=== PATIENT | female | born 1945 | race Caucasian/White ===

== ENCOUNTER 2016-12-10 14:50 | Observation (INO) | payer OTHER ==
[~2016-12-10] VITALS: Ht 162.6 cm; Wt 53.4 kg
[2016-12-10 16:04] LABS: HEMATOCRIT 37.9 % (36.0-46.0); MCH 33.3 PG (29.0-34.0); MCHC 33.2 G/DL (30.0-36.0); MCV 100.3 FL (83-99); MEAN PLAT.VOLUME 10.1 uM^3 (9.5-12.4); PLATELET COUNT 248 K/uL (156-360); RBC DIS.WIDTH-CV 13.1 % (11.8-14.6); RBC DIS.WIDTH-SD 48.5 % (39-53); RED BLOOD COUNT 3.78 M/uL (3.80-5.20); WHITE BLOOD COUNT 8.2 K/uL (4.1-10.2)
[2016-12-10 16:11] LABS: CHLORIDE 106 mEq/L (99-109); POTASSIUM 4.3 mEq/L (3.7-5.4); SODIUM 140 mEq/L (136-147)
[2016-12-10 16:13] LABS: GLUCOSE 110 mg/dL (70-99)
[2016-12-10 16:14] LABS: ANION GAP 13 MEQ/L (2-14)
[2016-12-10 16:17] LABS: GFR ESTIMATE (CALCULATED) 52 mL/min/
[2016-12-10 16:18] LABS: UREA NITROGEN (BUN) 20 mg/dL (9-23)
[2016-12-10 17:02] LABS: TROP-I INTERPRETATION NEGATIVE; TROPONIN-I < 0.01 ng/mL (0.0-0.30)
[2016-12-10 19:28] LABS: ADD MIUA? NO; BILIRUBIN NEGATIVE; BLOOD NEGATIVE; COLOR STRAW ((YELLOW)); GLUCOSE (STRIP) NEGATIVE; KETONES NEGATIVE; LEUKOCYTES NEGATIVE; NITRITE NEGATIVE; PROTEIN (STRIP) NEGATIVE; SPECIFIC GRAVITY 1.009 (1.000-1.030); UCUL ADDED? NO; UROBILINOGEN 0.2 MG/DL (0.2-1.0)
[2016-12-10] MEDS ORDERED: KEPPRA1000 MG PO (21:13)
[2016-12-10] MEDS ORDERED: SOTALOL120 MG PO (21:14)
[2016-12-10] MEDS ORDERED: VIMPAT150 MG PO (21:14)
[2016-12-10] MEDS ORDERED: EVISTA60 MG PO (21:15)
[2016-12-10] MEDS ORDERED: CRESTOR20 MG PO (21:17)
[2016-12-10] MEDS ORDERED: PAXIL10 MG PO (21:17)
[2016-12-10] MEDS ORDERED: MYSOLINE50 MG PO (21:18)
[2016-12-10] MEDS ORDERED: QVAR 80 MCG IN7.3 GM IH (21:19)
[2016-12-10] MEDS ORDERED: SPIRIVA18 MCG IH (21:19)
[2016-12-10] MEDS ORDERED: XALATAN2.5 ML BOTH EYES (21:21)
[2016-12-10] MEDS ORDERED: VENTOLIN HFA18 GM IH (21:22)
[2016-12-10] MEDS ORDERED: ANTI-DIARRHEA2 MG PO (21:23)
[2016-12-10] MEDS ORDERED: SALINE SOLUTIO360 ML (21:24)
[2016-12-10 21:52] LABS: MAGNESIUM 2.3 mg/dL (1.3-2.7)
[2016-12-10 21:57] LABS: SERUM ETHYL ALCOHOL < 10 mg/dL
[2016-12-10 22:33] VITALS: BP 136/90
[2016-12-11 04:43] VITALS: BP 116/65
[2016-12-11 05:12] LABS: AMPHETAMINES QUANT VALUE 0 NG/ML; BENZODIAZEPINES QUANT VALUE 0 NG/ML; BENZODIAZEPINES, URINE SCREEN Negative (200 ng/mL); MARIJUANA QUANT VALUE 0 NG/ML; OPIATES QUANTITATIVE VALUE 0 NG/ML; PHENCYCLIDINE QUANT VALUE 0 NG/ML
[2016-12-11 11:57] VITALS: BP 84/54
[2016-12-11 15:47] VITALS: BP 91/56
[2016-12-11 20:00] VITALS: BP 92/50
[2016-12-12 00:13] VITALS: BP 92/53
[2016-12-12 04:01] VITALS: BP 100/52
[2016-12-12 07:32] VITALS: BP 113/58
[2016-12-12 11:38] VITALS: BP 88/60
[2016-12-12] MEDS ORDERED: ASPIRIN81 M2 PO (12:47)
[2016-12-12] MEDS ORDERED: FOLIC ACID1 MG PO (12:48)
[2016-12-12] MEDS ORDERED: THIAMINE HCL100 MG PO (12:48)
== END 2016-12-12 15:45 | disposition home or self-care (01) ==
LOC: EME 14:50 → EDOF 21:03 → 5WEST 21:03 → ENRESERV 21:05 → 5WEST 22:20
PROVIDERS: Emergency Medicine; Physician Assistant Medical
DX: G40.409 Other generalized epilepsy and epileptic syndromes, not intractable, without status epilepticus (principal); R41.82 Altered mental status, unspecified; I48.2 Chronic atrial fibrillation; F10.20 Alcohol dependence, uncomplicated; I10 Essential (primary) hypertension; J44.9 Chronic obstructive pulmonary disease, unspecified; G25.0 Essential tremor; Z91.81 History of falling; H40.9 Unspecified glaucoma; E78.5 Hyperlipidemia, unspecified; Z87.891 Personal history of nicotine dependence; Z79.82 Long term (current) use of aspirin
CPT/HCPCS: 70450; 70551; 71020; 80048; 80306 90; 81003; 83735; 84484; 85027; 93005; 94640; 94640 76; 95819; 99202; 99281; 99285; G0378; G0480; J1650; J1953; J3411; J7030; J7050